=== PATIENT | male | born 1975 | race Caucasian/White ===

== ENCOUNTER 2017-11-07 21:40 | Emergency (ER) | payer OTHER ==
[~2017-11-07] VITALS: Ht 180.3 cm; Wt 129.7 kg
[2017-11-07 22:10] VITALS: Ht 180.3 cm; Wt 129.7 kg
[2017-11-07 23:28] LABS: PLATELET COUNT 220 x10^3mcL (130-400); RED CELL DISTRIBUTION WIDTH 13.5 % (11.5-14.5)
[2017-11-07 23:30] LABS: BASOPHIL % 2.3 % (0-2)
[2017-11-07 23:41] LABS: CALCIUM 8.1 mg/dL (8.5-10.1); CARBON DIOXIDE 28.6 mmol/L (21-32); CHLORIDE SERUM 102 mmol/L (98-107); CREATININE SERUM 1.3 mg/dL (0.7-1.3); GFR1 > 60 mL/min; GLUCOSE SERUM 126 mg/dL (74-106); POTASSIUM SERUM 3.2 mmol/L (3.5-5.1); SODIUM SERUM 141 mmol/L (136-145)
[2017-11-08 00:41] VITALS: BP 174/106
== END 2017-11-08 00:41 | disposition home or self-care (01) ==
LOC: ED 21:40
PROVIDERS: Emergency Medicine
DX: J20.9 Acute bronchitis, unspecified (principal); I10 Essential (primary) hypertension; F17.210 Nicotine dependence, cigarettes, uncomplicated
CPT/HCPCS: 36415

== ENCOUNTER 2018-02-16 15:37 | Emergency (ER) | payer OTHER ==
[~2018-02-16] VITALS: Ht 180.3 cm; Wt 133.8 kg
[2018-02-16 15:41] VITALS: Ht 180.3 cm; Wt 133.8 kg
[2018-02-16 16:18] VITALS: BP 184/123
== END 2018-02-16 16:30 | disposition home or self-care (01) ==
LOC: ED 15:37
DX: H60.501 Unspecified acute noninfective otitis externa, right ear (principal); I10 Essential (primary) hypertension

== ENCOUNTER 2018-03-12 23:43 | Emergency (ER) | payer OTHER ==
[~2018-03-12] VITALS: Ht 180.3 cm; Wt 137.9 kg
[2018-03-12 23:48] VITALS: Ht 180.3 cm; Wt 137.9 kg
[2018-03-13 00:53] LABS: BASOPHIL % 1.6 % (0-2); PLATELET COUNT 302 x10^3mcL (130-400); RED CELL DISTRIBUTION WIDTH 13.5 % (11.5-14.5)
[2018-03-13 00:58] LABS: CARBON DIOXIDE 32.1 mmol/L (21-32); CREATININE SERUM 1.6 mg/dL (0.7-1.3); POTASSIUM SERUM 3.9 mmol/L (3.5-5.1)
[2018-03-13 01:04] LABS: ALBUMIN 4.1 g/dL (3.4-5.0); BILIRUBIN TOTAL 0.53 mg/dL (0.20-1.00); TOTAL PROTEIN, SERUM 7.7 g/dL (6.4-8.2)
[2018-03-13 03:31] VITALS: BP 159/82
== END 2018-03-13 03:31 | disposition home or self-care (01) ==
LOC: ED 23:43
PROVIDERS: Emergency Medicine
DX: J98.01 Acute bronchospasm (principal); J06.9 Acute upper respiratory infection, unspecified; I10 Essential (primary) hypertension
CPT/HCPCS: J1885; J2930; J7030; J7613; J7644; Q0162